=== PATIENT | male | born 1960 | race African-American/Black ===

== ENCOUNTER 2016-11-20 12:42 | Inpatient (IN) | payer OTHER ==
[2016-11-20 15:40] VITALS: BMI 26.9
--- NOTE | 2016-11-20 16:26 | HP ---
CIWA Score - CIWA Score Nausea/Vomitin-No Nausea/No Vomiting Muscle Tremors: 4-Moderate,w/Arms Extend Anxiety: 5 Agitation: 3 Paroxysmal Sweats: 1-Minimal Palms Moist Orientation: 0-Oriented Tacttile Disturbances: 3-Moderate Itch/Numb/Burn Auditory Disturbances: 0-None Visual Disturbances: 0-None Headache: 1-Very Mild CIWA-Ar Total Score: 17 Admission ROS BHS - HPI Chief Complaint: DETOX TX FOR ALCOHOL DEPENDENCE Allergies/Adverse Reactions: Allergies Allergy/AdvReac Type Severity Reaction Status Date / Time No Known Allergies Allergy Verified 11/20/16 17:30 History of Present Illness: 56 Y/O AA/MALE WITH A HX OF ALCOHOL, CRACK AND MARIJUANA DEPENDENCE SEEKING DETOX TX. Exam Limitations: No Limitations - Ebola screening Have you traveled outside of the country in the last 21 days: No Have you had contact with anyone from an Ebola affected area: No Have you been sick,other than usual withdrawal symptoms: No Do you have a fever: No - Review of Systems Constitutional: Changes in sleep, Unintentional Wgt. Loss EENT: reports: Blurred Vision (WEARS READING GLASSES), Tearing, Dental Problems (CHIPPED TOOTH) Respiratory: reports: Shortness of Breath (HX ASTHMA-MDI), Wheezing Cardiac: reports: Lightheadedness GI: reports: Diarrhea, Nausea, Vomiting, Abdominal cramping : reports: Frequency Musculoskeletal: reports: Back Pain, Muscle Pain Integumentary: reports: No Symptoms Reported Neuro: reports: Headache, Dizziness Endocrine: reports: No Symptoms Reported Hematology: reports: Anemia (IN THE PAST) Psychiatric: reports: Orientated x3, Anxious, Depressed Other Systems: Reviewed and Negative Patient History - Patient Medical History Hx Anemia: Yes (IN THE PAST) Hx Asthma: Yes (ALBUTEROL INHALER) Hx Chronic Obstructive Pulmonary Disease (COPD): No Hx Cardiac Disorders: No Hx Hypertension: Yes (ON HYDROCHLOROTHIAZIDE AND NORVASC) Hx Hypercholesterolemia: No HX Cerebrovascular Accident: No Hx Seizures: No Hx Diabetes: No Hx Gastrointestinal Disorders: No Hx Liver Disease: No Hx Genitourinary Disorders: No Hx Sexually Transmitted Disorders: No Hx Renal Disease (ESRD): No Hx Thyroid Disease: No Hx Human Immunodeficiency Virus (HIV): No (NEGATIVE HX) Hx Hepatitis C: Yes (TREATED) Hx Depression: Yes (CURENTLY ON MED) Hx Suicide Attempt: No (DENIES) Hx Bipolar Disorder: Yes Hx Schizophrenia: No - Patient Surgical History Past Surgical History: No Hx Neurologic Surgery: No Hx Cataract Extraction: No Hx Cardiac Surgery: No Hx Lung Surgery: No Hx Breast Surgery: No Hx Breast Biopsy: No Hx Abdominal Surgery: No Hx Appendectomy: No Hx Cholecystectomy: No Hx Genitourinary Surgery: No Hx Orthopedic Surgery: No Anesthesia Reaction: No - PPD History Previous Implant?: Yes (PPD+ HX WITH TREATMENT) Documented Results: Positive w/o proof Results: CXR TO BE DONE PPD to be Administered?: No - Reproductive History Patient is a Female of Child Bearing Age (11 -55 yrs old): No (MALE) - Smoking Cessation Smoking history: Current every day smoker Have you smoked in the past 12 months: Yes Aproximately how many cigarettes per day: 6 Hx Chewing Tobacco Use: No Initiated information on smoking cessation: Yes 'Breaking Loose' booklet given: 11/20/16 - Substance & Tx. History Hx Alcohol Use: Yes (BEER) Hx Substance Use: Yes (CRACK/MARIJUANA) Substance Use Type: Alcohol, Cocaine, Marijuana Hx Substance Use Treatment: Yes - Substances Abused Alcohol Route: Oral Frequency: Daily (BEERS) Amount used: 2 24 OZ CANS/1/2 PT(ON WEEKENDS) Age of first use: 13 Date of Last Use: 11/20/16 Crack Route: Smoking Frequency: 1-2 times per week Amount used: $100 Age of first use: 25 Date of Last Use: 11/17/16 Marijuana/Hashish Route: Smoking Frequency: 1-3 times last 30 days Amount used: 1 BLUNT Age of first use: 15 Date of Last Use: 10/23/16 Family Disease History - Family Disease History Family Disease History: Diabetes: Brother, Heart Disease: Mother () Admission Physical Exam BHS - Vital Signs Vital Signs: Vital Signs - 24 hr 11/20/16 15:38 Temperature 97.4 F L Pulse Rate 84 Respiratory 20 Rate Blood Pressure 143/85 - Physical General Appearance: Yes: Mild Distress, Moderate Distress, Anxious HEENTM: Yes: EOMI, Normocephalic, JOSE G, Pharynx Normal Respiratory: Yes: Chest Non-Tender, Lungs Clear, Normal Breath Sounds, No Respiratory Distress Neck: Yes: Supple, Trachea in good position Breast: Yes: Breast Exam Deferred Cardiology: Yes: Regular Rhythm, Regular Rate, S1, S2 Abdominal: Yes: Normal Bowel Sounds, Non Tender, Soft Genitourinary: Yes: Other (N/C) Back: Yes: Within Normal Limits Musculoskeletal: Yes: full range of Motion, Gait Steady Extremities: Yes: Normal Range of Motion, Non-Tender Neurological: Yes: study specialist II-XII NML intact, Fully Oriented, Alert, Motor Strength 5/5 Integumentary: Yes: Dry, Warm Lymphatic: Yes: Within Normal Limits - Diagnostic (1) Hypertension Current Visit: Yes Status: Chronic Qualifiers: Hypertension type: essential hypertension Qualified Code(s): I10 - Essential (primary) hypertension (2) Nicotine dependence Current Visit: Yes Status: Acute Qualifiers: Nicotine product type: cigarettes Substance use status: in withdrawal Qualified Code(s): F17.213 - Nicotine dependence, cigarettes, with withdrawal (3) Alcohol dependence with uncomplicated withdrawal Current Visit: Yes Status: Chronic (4) Cannabis dependence, uncomplicated Current Visit: No Status: Inactive (5) Cocaine dependence, uncomplicated Current Visit: Yes Status: Acute (6) History of asthma Current Visit: Yes Status: Chronic (7) Hx of hepatitis C Current Visit: Yes Status: Chronic (8) History of anemia Current Visit: Yes Status: Suspected (9) History of positive PPD Current Visit: Yes Status: Suspected Cleared for Admission [facility] - Detox or Rehab [facility] Level of Care: Medically Managed Detox Regimen/Protocol: Librium [facility] Breath Alcohol Content Breath Alcohol Content: 0 Urine Drug Screen - Results Drug Screen Negative: No Urine Drug Screen Results: KILEY-Cocaine
[2016-11-20] MEDS ORDERED: chlordiazePOXIDE HCL 25 MG CAPSULE PO PRN (16:40)
[2016-11-20] MEDS ORDERED: diphenhydrAMINE HCL 50 MG CAPSULE PO PRN (16:40)
[2016-11-20] MEDS ORDERED: MAGNESIUM CITRATE 300 ML BOTTLE PO PRN (16:40)
[2016-11-20] MEDS ORDERED: IBUPROFEN 400 MG TABLET (FP) PO PRN (16:40)
[2016-11-20] MEDS ORDERED: MAG HYDROX/AL HYDROX/SIMETH 30 ML UNIT-DOSE CUP PO PRN (16:40)
[2016-11-20] MEDS ORDERED: MAGNESIUM HYDROX 2400MG/30ML ORAL SUSPENSION 30 ML CUP PO PRN (16:40)
[2016-11-20] MEDS ORDERED: guaiFENesin/D-METHORPHAN HB 10 ML UNIT-DOSE CUPS PO PRN (16:40)
[2016-11-20] MEDS ORDERED: ACETAMINOPHEN 325 MG TABLET (FP) PO PRN (16:40)
[2016-11-20] MEDS ORDERED: NICOTINE POLACRILEX 2 MG GUM BC PRN (16:40)
[2016-11-20] MEDS ORDERED: MENTHOL/PHENOL 1 EACH UD MM PRN (16:40)
[2016-11-20] MEDS ORDERED: LOPERAMIDE HCL 2 MG CAPSULE PO PRN (16:40)
[2016-11-20] MEDS ORDERED: hydrOXYzine PAMOATE 25 MG CAPSULE (FP) PO PRN (16:40)
[2016-11-20] MEDS ORDERED: P-EPHED 60MG/TRIPROLIDI 2.5MG TABLET PO PRN (16:40)
[2016-11-20] MEDS ORDERED: chlordiazePOXIDE HCL 25 MG CAPSULE PO ONE (18:15)
[2016-11-20] MEDS: NICOTINE 14 MG/24 HOURS TOPICAL PATCH TD SCH (18:24)
[2016-11-20] MEDS: amLODIPine BESYLATE 10 MG TABLET (FP) PO SCH (18:24)
[2016-11-20 21:02] LABS: MCH 28.4 pg (25.7-33.7); MCHC 32.4 g/dl (32.0-35.9); MEAN CELL VOLUME 87.6 fl (80-96); MEAN PLT VOLUME 8.6 fl (7.5-11.1); PLATELET COUNT 214 K/MM3 (134-434); RDW 13.8 % (11.9-15.9); WHITE BLOOD COUNT 4.6 K/mm3 (4.0-10.0)
[2016-11-20 21:32] LABS: ALBUMIN 3.6 g/dl (3.4-5.0); ALK PHOS 107 U/L (45-117); ANION GAP 7 (8-16); BILIRUBIN,TOTAL 0.3 mg/dL (0.2-1.0); CALCIUM 9.2 mg/dL (8.5-10.1); CO2 29 mmol/L (21-32); CREATININE 1.2 mg/dL (0.7-1.3); GLUCOSE,RANDOM 85 mg/dL (74-106); SGOT/AST 35 U/L (15-37); SGPT/ALT 71 U/L (12-78)
[2016-11-20] MEDS: THIAMINE HCL 100 MG TABLET (FP) PO SCH (22:07)
[2016-11-20] MEDS: chlordiazePOXIDE HCL 25 MG CAPSULE PO SCH (22:07)
[2016-11-20 23:13] LABS: URINE APPEARANCE CLEAR; URINE BILIRUBIN NEGATIVE (NEGATIVE); URINE BLOOD NEGATIVE (NEGATIVE); URINE COLOR YELLOW; URINE GLUCOSE (UA) NEGATIVE (NEGATIVE); URINE KETONE NEGATIVE (NEGATIVE); URINE NITRITE NEGATIVE (NEGATIVE); URINE UROBILINOGEN 2.0 E.U/dl E.U./dl (0.2-1.0)
[2016-11-20 23:14] LABS: URINE LEUK ESTERASE TRACE (NEGATIVE); URINE PROTEIN 1+ (NEGATIVE)
[2016-11-21] MEDS: chlordiazePOXIDE HCL 25 MG CAPSULE PO SCH ×4 (06:02→22:09)
--- NOTE | 2016-11-21 10:01 | PN ---
[facility] CIWA - CIWA Score Nausea/Vomitin-No Nausea/No Vomiting Muscle Tremors: 4-Moderate,w/Arms Extend Anxiety: 4-Mod. Anxious/Guarded Agitation: 4-Moderately Restless Paroxysmal Sweats: 1-Minimal Palms Moist Orientation: 0-Oriented Tacttile Disturbances: 3-Moderate Itch/Numb/Burn Auditory Disturbances: 0-None Visual Disturbances: 0-None Headache: 0-None Present CIWA-Ar Total Score: 16 S Progress Note (SOAP) Subjective: ANXIETY,SWEATS,TREMORS,FATIGUE,INTERMITTENT SLEP. Objective: 11/21/16 10:00 Vital Signs Temperature 97.0 F L 11/21/16 09:35 Pulse Rate 78 11/21/16 09:35 Respiratory Rate 18 11/21/16 09:35 Blood Pressure 144/90 11/21/16 09:35 O2 Sat by Pulse Oximetry (%) Laboratory Last Values WBC 4.6 K/mm3 (4.0-10.0) 11/20/16 13:00 RBC 4.77 M/mm3 (4.00-5.60) 11/20/16 13:00 Hgb 13.5 GM/dL (11.7-16.9) 11/20/16 13:00 Hct 41.7 % (35.4-49) 11/20/16 13:00 MCV 87.6 fl (80-96) 11/20/16 13:00 MCHC 32.4 g/dl (32.0-35.9) 11/20/16 13:00 RDW 13.8 % (11.9-15.9) 11/20/16 13:00 Plt Count 214 K/MM3 (134-434) 11/20/16 13:00 MPV 8.6 fl (7.5-11.1) 11/20/16 13:00 Sodium 141 mmol/L (136-145) 11/20/16 13:00 Potassium 3.9 mmol/L (3.5-5.1) 11/20/16 13:00 Chloride 105 mmol/L (98-107) 11/20/16 13:00 Carbon Dioxide 29 mmol/L (21-32) 11/20/16 13:00 Anion Gap 7 (8-16) L 11/20/16 13:00 BUN 22 mg/dL (7-18) H D 11/20/16 13:00 Creatinine 1.2 mg/dL (0.7-1.3) 11/20/16 13:00 Creat Clearance w eGFR > 60 (>60) 11/20/16 13:00 Random Glucose 85 mg/dL (74-106) 11/20/16 13:00 Calcium 9.2 mg/dL (8.5-10.1) 11/20/16 13:00 Total Bilirubin 0.3 mg/dL (0.2-1.0) D 11/20/16 13:00 AST 35 U/L (15-37) 11/20/16 13:00 ALT 71 U/L (12-78) D 11/20/16 13:00 Alkaline Phosphatase 107 U/L (45-117) D 11/20/16 13:00 Total Protein 7.0 g/dl (6.4-8.2) 11/20/16 13:00 Albumin 3.6 g/dl (3.4-5.0) 11/20/16 13:00 Urine Color Yellow 11/20/16 23:00 Urine Appearance Clear 11/20/16 23:00 Urine pH 5.0 (5.0-8.0) 11/20/16 23:00 Ur Specific [place] 1.030 (1.001-1.035) 11/20/16 23:00 Urine Protein 1+ (NEGATIVE) H 11/20/16 23:00 Urine Glucose (UA) Negative (NEGATIVE) 11/20/16 23:00 Urine Ketones Negative (NEGATIVE) 11/20/16 23:00 Urine Blood Negative (NEGATIVE) 11/20/16 23:00 Urine Nitrite Negative (NEGATIVE) 11/20/16 23:00 Urine Bilirubin Negative (NEGATIVE) 11/20/16 23:00 Urine Urobilinogen 2.0 e.u/dl E.U./dl (0.2-1.0) 11/20/16 23:00 Ur Leukocyte Esterase Trace (NEGATIVE) H 11/20/16 23:00 Assessment: 11/21/16 10:01 WITHDRAWAL SX Plan: CONTINUE DETOX
[2016-11-21] MEDS: ASPIRIN 81 MG CHEWABLE TABLETS PO SCH (10:09)
[2016-11-21] MEDS: TRIAMTERENE AND HCTZ - 37.5 MG/25 MG CAPSULE PO SCH (10:09)
[2016-11-21] MEDS: NICOTINE 14 MG/24 HOURS TOPICAL PATCH TD SCH (10:09)
[2016-11-21] MEDS: amLODIPine BESYLATE 10 MG TABLET (FP) PO SCH (10:09)
[2016-11-21] MEDS: PRENATAL VITAMINS W/ FOLIC ACID TABLET (FP) PO SCH (10:09)
--- NOTE | 2016-11-21 20:36 | CONSULT ---
[facility] Psychiatric Consult - Data Date of interview: 11/21/16 Admission source: [facility] Identifying data: Readmission to [facility] for this 56 y/o AA male seeking detox treatment on for alcohol,cocaine and marijuana dependence.Patient is single,a father of two,domiciled,unemployed and supported on Public Assistance. Substance Abuse History: - Smoking Cessation. Smoking history: Current every day smoker. Have you smoked in the past 12 months: Yes. Aproximately how many cigarettes per day: 6. Hx Chewing Tobacco Use: No. Initiated information on smoking cessation: Yes. 'Breaking Loose' booklet given: 11/20/16. - Substance & Tx. History. Hx Alcohol Use: Yes (BEER). Hx Substance Use: Yes (CRACK/ MARIJUANA). Substance Use Type: Alcohol, Cocaine, Marijuana. Hx Substance Use Treatment: Yes. - Substances Abused. Alcohol. Route: Oral. Frequency: Daily (BEERS). Amount used: 2 24 OZ CANS/1/2 PT(ON WEEKENDS). Age of first use: 13. Date of Last Use: 11/20/16. Crack. Route: Smoking. Frequency: 1- 2 times per week. Amount used: $100. Age of first use: 25. Date of Last Use: 11/17/16. Marijuana/Hashish. Route: Smoking. Frequency: 1-3 times last 30 days. Amount used: 1 BLUNT. Age of first use: 15. Date of Last Use: 10/23/16 Medical History: Anemia,bronchial asthma,hypertension,hepatitis C and a history of (+) PPD treated. Psychiatric History: First contact with psychiatry () during incarceration.Diagnosed with MDD.Diagnosis was revised to Bipolar Disorder/PTSD in 2017. Prescribed seroquel 50 mg po bid and prozac 10 mg/day.Mr Khan states that he is seeing a private psychiatrist.No reported history of psychiatric hospitalizations.Patient denies suicide attempts. Physical/Sexual Abuse/Trauma History: Patient declines to discuss the reasons leading to his diagnosis of PTSD. Additional Comment: Urine Drug Screen Results: KILEY-Cocaine.Noted. Mental Status Exam - Mental Status Exam Alert and Oriented to: Time, Place, Person Cognitive Function: Good Patient Appearance: Well Groomed Mood: Nervous, Withdrawn, Anxious Affect: Mood Congruent Patient Behavior: Fatigued, Appropriate, Cooperative Speech Pattern: Clear, Appropriate Voice Loudness: Normal Thought Process: Goal Oriented Thought Disorder: Not Present Hallucinations: Denies Suicidal Ideation: Denies Homicidal Ideation: Denies Insight/Judgement: Poor Sleep: Poorly, Difficulty falling asleep Appetite: Good Muscle strength/Tone: Normal Gait/Station: Normal Psychiatric Findings - Problem List ([place] 1, 2,3) (1) Alcohol dependence with uncomplicated withdrawal Current Visit: Yes Status: Acute (2) Cocaine dependence, uncomplicated Current Visit: Yes Status: Acute (3) Nicotine dependence Current Visit: Yes Status: Acute Qualifiers: Nicotine product type: cigarettes Substance use status: in withdrawal Qualified Code(s): F17.213 - Nicotine dependence, cigarettes, with withdrawal (4) Cannabis dependence Current Visit: Yes Status: Acute (5) Substance induced mood disorder Current Visit: Yes Status: Acute (6) Depressive disorder Current Visit: Yes Status: Chronic Comment: History. (7) History of asthma Current Visit: Yes Status: Chronic (8) Hx of hepatitis C Current Visit: Yes Status: Chronic (9) Hypertension Current Visit: Yes Status: Chronic Qualifiers: Hypertension type: essential hypertension Qualified Code(s): I10 - Essential (primary) hypertension (10) History of anemia Current Visit: Yes Status: Suspected (11) History of positive PPD Current Visit: Yes Status: Suspected - Initial Treatment Plan Initial Treatment Plan: Psychoeducation.Detoxification.Medications : prozac 10 mg po daily + seroquel 50 mg po bid.Side effects/benefits discussed with the patient.Observation.
[2016-11-21] MEDS: QUEtiapine FUMARATE 50 MG TABLET PO SCH (22:09)
[2016-11-21] MEDS: THIAMINE HCL 100 MG TABLET (FP) PO SCH (22:09)
[2016-11-22] MEDS: chlordiazePOXIDE HCL 25 MG CAPSULE PO SCH ×3 (05:56→18:18)
[2016-11-22] MEDS: amLODIPine BESYLATE 10 MG TABLET (FP) PO SCH (10:11)
[2016-11-22] MEDS: ASPIRIN 81 MG CHEWABLE TABLETS PO SCH (10:11)
[2016-11-22] MEDS: FLUoxetine HCL 10 MG CAPSULE (FP) PO SCH (10:11)
[2016-11-22] MEDS: TRIAMTERENE AND HCTZ - 37.5 MG/25 MG CAPSULE PO SCH (10:11)
[2016-11-22] MEDS: NICOTINE 14 MG/24 HOURS TOPICAL PATCH TD SCH (10:12)
[2016-11-22] MEDS: QUEtiapine FUMARATE 50 MG TABLET PO SCH ×2 (10:12→22:07)
[2016-11-22] MEDS: PRENATAL VITAMINS W/ FOLIC ACID TABLET (FP) PO SCH (10:12)
--- NOTE | 2016-11-22 10:36 | PN ---
[facility] CIWA - CIWA Score Nausea/Vomitin-No Nausea/No Vomiting Muscle Tremors: 4-Moderate,w/Arms Extend Anxiety: 4-Mod. Anxious/Guarded Agitation: 3 Paroxysmal Sweats: 1-Minimal Palms Moist Orientation: 0-Oriented Tacttile Disturbances: 3-Moderate Itch/Numb/Burn Auditory Disturbances: 0-None Visual Disturbances: 0-None Headache: 0-None Present CIWA-Ar Total Score: 15 S Progress Note (SOAP) Subjective: ANXIETY,TREMORS,SWEATS, FATIGUE. Objective: 11/22/16 10:35 Vital Signs Temperature 98.7 F 11/22/16 09:34 Pulse Rate 80 11/22/16 09:34 Respiratory Rate 20 11/22/16 09:34 Blood Pressure 134/90 11/22/16 09:34 O2 Sat by Pulse Oximetry (%) Laboratory Last Values WBC 4.6 K/mm3 (4.0-10.0) 11/20/16 13:00 RBC 4.77 M/mm3 (4.00-5.60) 11/20/16 13:00 Hgb 13.5 GM/dL (11.7-16.9) 11/20/16 13:00 Hct 41.7 % (35.4-49) 11/20/16 13:00 MCV 87.6 fl (80-96) 11/20/16 13:00 MCHC 32.4 g/dl (32.0-35.9) 11/20/16 13:00 RDW 13.8 % (11.9-15.9) 11/20/16 13:00 Plt Count 214 K/MM3 (134-434) 11/20/16 13:00 MPV 8.6 fl (7.5-11.1) 11/20/16 13:00 Sodium 141 mmol/L (136-145) 11/20/16 13:00 Potassium 3.9 mmol/L (3.5-5.1) 11/20/16 13:00 Chloride 105 mmol/L (98-107) 11/20/16 13:00 Carbon Dioxide 29 mmol/L (21-32) 11/20/16 13:00 Anion Gap 7 (8-16) L 11/20/16 13:00 BUN 22 mg/dL (7-18) H D 11/20/16 13:00 Creatinine 1.2 mg/dL (0.7-1.3) 11/20/16 13:00 Creat Clearance w eGFR > 60 (>60) 11/20/16 13:00 Random Glucose 85 mg/dL (74-106) 11/20/16 13:00 Calcium 9.2 mg/dL (8.5-10.1) 11/20/16 13:00 Total Bilirubin 0.3 mg/dL (0.2-1.0) D 11/20/16 13:00 AST 35 U/L (15-37) 11/20/16 13:00 ALT 71 U/L (12-78) D 11/20/16 13:00 Alkaline Phosphatase 107 U/L (45-117) D 11/20/16 13:00 Total Protein 7.0 g/dl (6.4-8.2) 11/20/16 13:00 Albumin 3.6 g/dl (3.4-5.0) 11/20/16 13:00 Urine Color Yellow 11/20/16 23:00 Urine Appearance Clear 11/20/16 23:00 Urine pH 5.0 (5.0-8.0) 11/20/16 23:00 Ur Specific [place] 1.030 (1.001-1.035) 11/20/16 23:00 Urine Protein 1+ (NEGATIVE) H 11/20/16 23:00 Urine Glucose (UA) Negative (NEGATIVE) 11/20/16 23:00 Urine Ketones Negative (NEGATIVE) 11/20/16 23:00 Urine Blood Negative (NEGATIVE) 11/20/16 23:00 Urine Nitrite Negative (NEGATIVE) 11/20/16 23:00 Urine Bilirubin Negative (NEGATIVE) 11/20/16 23:00 Urine Urobilinogen 2.0 e.u/dl E.U./dl (0.2-1.0) 11/20/16 23:00 Ur Leukocyte Esterase Trace (NEGATIVE) H 11/20/16 23:00 RPR Titer Nonreactive (NONREACTIVE) 11/20/16 13:00 Assessment: 11/22/16 10:35 WITHDRAWAL SX Plan: CONTINUE DETOX. REPEAT UA TODAY.
--- NOTE | 2016-11-22 11:15 | EKG ---
Test Reason : Blood Pressure : / mmHG Vent. Rate : 054 BPM Atrial Rate : 054 BPM P-R Int : 172 ms QRS Dur : 092 ms QT Int : 482 ms P-R-T Axes : 068 -04 -62 degrees QTc Int : 457 ms SINUS BRADYCARDIA WITH MARKED SINUS ARRHYTHMIA POSSIBLE LEFT ATRIAL ENLARGEMENT POSSIBLE ANTEROSEPTAL INFARCT , AGE UNDETERMINED ABNORMAL ECG NO PREVIOUS ECGS AVAILABLE Confirmed by NATALIE SNOWDEN, ARLENE ([id number]) on 11/22/2016 11:15:48 AM Referred By: Confirmed By:ARLENE ESTRADA MD
--- NOTE | 2016-11-22 20:58 | PN ---
S Progress Note Note: RECEIVED NURSE CALL PATIENT REFUSES LIBRIUM 25 MG X 1 LESS WITHDRAWAL SX CONTINUE DETOX
[2016-11-22] MEDS: THIAMINE HCL 100 MG TABLET (FP) PO SCH (22:07)
[2016-11-22] MEDS: chlordiazePOXIDE 5 MG CAPSULE PO SCH (22:59)
[2016-11-23] MEDS: chlordiazePOXIDE 5 MG CAPSULE PO SCH ×3 (05:48→17:24)
[2016-11-23] MEDS: PRENATAL VITAMINS W/ FOLIC ACID TABLET (FP) PO SCH (10:08)
[2016-11-23] MEDS: ASPIRIN 81 MG CHEWABLE TABLETS PO SCH (10:08)
[2016-11-23] MEDS: QUEtiapine FUMARATE 50 MG TABLET PO SCH ×2 (10:08→22:06)
[2016-11-23] MEDS: amLODIPine BESYLATE 10 MG TABLET (FP) PO SCH (10:08)
[2016-11-23] MEDS: FLUoxetine HCL 10 MG CAPSULE (FP) PO SCH (10:08)
[2016-11-23] MEDS: NICOTINE 14 MG/24 HOURS TOPICAL PATCH TD SCH (10:09)
[2016-11-23] MEDS: TRIAMTERENE AND HCTZ - 37.5 MG/25 MG CAPSULE PO SCH (10:10)
--- NOTE | 2016-11-23 12:09 | PN ---
[facility] Progress Note (SOAP) Subjective: DECREASED ANXIETY AND TREMORS. LESS FATIGUE, OOB IN NAD. Objective: 11/23/16 12:08 Vital Signs 11/23/16 11/23/16 06:49 09:56 Temperature 97.5 F L 97.1 F L Pulse Rate 75 75 Respiratory 18 20 Rate Blood Pressure 134/88 150/94 Assessment: 11/23/16 12:08 WITHDRAWAL SX Plan: CONTINUE DETOX
[2016-11-23 20:23] LABS: URINE APPEARANCE CLEAR; URINE BILIRUBIN NEGATIVE (NEGATIVE); URINE BLOOD NEGATIVE (NEGATIVE); URINE COLOR YELLOW; URINE GLUCOSE (UA) NEGATIVE (NEGATIVE); URINE KETONE NEGATIVE (NEGATIVE); URINE LEUK ESTERASE NEGATIVE (NEGATIVE); URINE NITRITE NEGATIVE (NEGATIVE); URINE PROTEIN NEGATIVE (NEGATIVE); URINE UROBILINOGEN NEGATIVE E.U./dl (0.2-1.0)
[2016-11-23] MEDS: THIAMINE HCL 100 MG TABLET (FP) PO SCH (22:06)
[2016-11-23] MEDS: chlordiazePOXIDE HCL 10 MG CAPSULE PO SCH (22:06)
[2016-11-24] MEDS: chlordiazePOXIDE HCL 10 MG CAPSULE PO SCH ×2 (05:17→10:58)
[2016-11-24] MEDS ORDERED: ALBUTEROL SO4 6.7 GM HFA INHALER IH SCH (09:00)
[2016-11-24] MEDS: ASPIRIN 81 MG CHEWABLE TABLETS PO SCH (09:47)
[2016-11-24] MEDS: PRENATAL VITAMINS W/ FOLIC ACID TABLET (FP) PO SCH (09:47)
[2016-11-24] MEDS: amLODIPine BESYLATE 10 MG TABLET (FP) PO SCH (09:47)
[2016-11-24] MEDS: FLUoxetine HCL 10 MG CAPSULE (FP) PO SCH (09:47)
[2016-11-24] MEDS: TRIAMTERENE AND HCTZ - 37.5 MG/25 MG CAPSULE PO SCH (09:48)
[2016-11-24] MEDS: NICOTINE 14 MG/24 HOURS TOPICAL PATCH TD SCH (09:48)
[2016-11-24] MEDS: QUEtiapine FUMARATE 50 MG TABLET PO SCH (09:48)
[2016-11-24 10:36] VITALS: BP 143/88; PULSE 105; TEMP 97.8
--- NOTE | 2016-11-24 10:49 | DS ---
[facility] Detox Discharge Summary Admission Date: 11/20/16 Discharge Date: 11/24/16 - History Present History: Alcohol Dependence, Cocaine Dependence Additional Comments: DETOX COMPLETED. ALERT O X 3. NAD. PT INSTRUCTED TO F/U WITH PMD AT [facility] COMORBID CONDITIONS. Pertinent Past History: HTN HX CARDIAC ARRHYTHMIA HEP C ASTHMA MOOD DISORDER - Physical Exam Results Vital Signs: Vital Signs Temperature 97.8 F 11/24/16 10:35 Pulse Rate 105 H 11/24/16 10:35 Respiratory Rate 20 11/24/16 10:35 Blood Pressure 143/88 11/24/16 10:35 O2 Sat by Pulse Oximetry (%) Pertinent Admission Physical Exam Findings: WITHDRAWAL SX Laboratory Last Values WBC 4.6 K/mm3 (4.0-10.0) 11/20/16 13:00 RBC 4.77 M/mm3 (4.00-5.60) 11/20/16 13:00 Hgb 13.5 GM/dL (11.7-16.9) 11/20/16 13:00 Hct 41.7 % (35.4-49) 11/20/16 13:00 MCV 87.6 fl (80-96) 11/20/16 13:00 MCHC 32.4 g/dl (32.0-35.9) 11/20/16 13:00 RDW 13.8 % (11.9-15.9) 11/20/16 13:00 Plt Count 214 K/MM3 (134-434) 11/20/16 13:00 MPV 8.6 fl (7.5-11.1) 11/20/16 13:00 Sodium 141 mmol/L (136-145) 11/20/16 13:00 Potassium 3.9 mmol/L (3.5-5.1) 11/20/16 13:00 Chloride 105 mmol/L (98-107) 11/20/16 13:00 Carbon Dioxide 29 mmol/L (21-32) 11/20/16 13:00 Anion Gap 7 (8-16) L 11/20/16 13:00 BUN 22 mg/dL (7-18) H D 11/20/16 13:00 Creatinine 1.2 mg/dL (0.7-1.3) 11/20/16 13:00 Creat Clearance w eGFR > 60 (>60) 11/20/16 13:00 Random Glucose 85 mg/dL (74-106) 11/20/16 13:00 Calcium 9.2 mg/dL (8.5-10.1) 11/20/16 13:00 Total Bilirubin 0.3 mg/dL (0.2-1.0) D 11/20/16 13:00 AST 35 U/L (15-37) 11/20/16 13:00 ALT 71 U/L (12-78) D 11/20/16 13:00 Alkaline Phosphatase 107 U/L (45-117) D 11/20/16 13:00 Total Protein 7.0 g/dl (6.4-8.2) 11/20/16 13:00 Albumin 3.6 g/dl (3.4-5.0) 11/20/16 13:00 Urine Color Yellow 11/23/16 20:01 Urine Appearance Clear 11/23/16 20:01 Urine pH 6.0 (5.0-8.0) 11/23/16 20:01 Ur Specific [place] 1.025 (1.001-1.035) 11/23/16 20:01 Urine Protein Negative (NEGATIVE) 11/23/16 20:01 Urine Glucose (UA) Negative (NEGATIVE) 11/23/16 20:01 Urine Ketones Negative (NEGATIVE) 11/23/16 20:01 Urine Blood Negative (NEGATIVE) 11/23/16 20:01 Urine Nitrite Negative (NEGATIVE) 11/23/16 20:01 Urine Bilirubin Negative (NEGATIVE) 11/23/16 20:01 Urine Urobilinogen Negative E.U./dl (0.2-1.0) 11/23/16 20:01 Ur Leukocyte Esterase Negative (NEGATIVE) 11/23/16 20:01 RPR Titer Nonreactive (NONREACTIVE) 11/20/16 13:00 - Treatment Hospital Course: Detox Protocol Followed, Detoxed Safely, Responded well, Discharged Condition Good, Rehab Referral Accepted Patient has Accepted a Rehab Referral to: [facility] - Medication Discharge Medications: Ambulatory Orders Amlodipine Besylate [Norvasc -] 10 mg PO DAILY #30 tablet 06/16/16 Hctz 25Mg/Triamterene [Dyazide 25/37.5 -] 1 cap PO DAILY #30 capsule 06/16/16 Quetiapine Fumarate [Seroquel] 100 tab PO HS #30 tablet 06/16/16 Albuterol Sulfate Inhaler - [Ventolin Hfa Inhaler -] 2 inh PO Q6H 11/20/16 Fluoxetine HCl [Prozac -] 10 mg PO DAILY #30 capsule 11/22/16 Quetiapine Fumarate [Seroquel -] 50 mg PO BID #30 tablet 11/22/16 - Diagnosis (1) Hypertension Current Visit: Yes Status: Chronic Qualifiers: Hypertension type: essential hypertension Qualified Code(s): I10 - Essential (primary) hypertension (2) Nicotine dependence Current Visit: Yes Status: Acute Qualifiers: Nicotine product type: cigarettes Substance use status: in withdrawal Qualified Code(s): F17.213 - Nicotine dependence, cigarettes, with withdrawal (3) Alcohol dependence with uncomplicated withdrawal Current Visit: Yes Status: Acute (4) Cannabis dependence, uncomplicated Current Visit: No Status: Inactive (5) Cocaine dependence, uncomplicated Current Visit: Yes Status: Acute (6) History of asthma Current Visit: Yes Status: Chronic (7) Hx of hepatitis C Current Visit: Yes Status: Chronic (8) History of anemia Current Visit: Yes Status: Suspected (9) History of positive PPD Current Visit: Yes Status: Suspected (10) Cardiac arrhythmia Current Visit: Yes Status: Suspected Qualifiers: Atrial fibrillation type: unspecified - AMA Did Patient Leave Against Medical Advice: No
== END 2016-11-24 09:50 | disposition home or self-care (01) | DRG 774 ==
LOC: YASAS 12:42 → Y3N 17:57
PROVIDERS: ADMIT Internal Medicine Addiction Medicine; ATTEND Internal Medicine
PROC: HZ2ZZZZ Detoxification Services for Substance Abuse Treatment (ICD-10-PCS; principal; 2016-11-24)
DX: F10.230 Alcohol dependence with withdrawal, uncomplicated (principal); F17.210 Nicotine dependence, cigarettes, uncomplicated; F14.20 Cocaine dependence, uncomplicated; F12.20 Cannabis dependence, uncomplicated; F19.24 Other psychoactive substance dependence with psychoactive substance-induced mood disorder; F33.9 Major depressive disorder, recurrent, unspecified; I10 Essential (primary) hypertension; J45.20 Mild intermittent asthma, uncomplicated; B18.2 Chronic viral hepatitis C; D64.9 Anemia, unspecified; R76.11 Nonspecific reaction to tuberculin skin test without active tuberculosis
CPT/HCPCS: 36415; 71020-TC; 80053; 81003; 81015; 85027; 86593; 93005; 93010

== ENCOUNTER 2023-10-26 12:07 | Inpatient (IN) | payer OTHER ==
[2023-10-26 13:15] VITALS: BMI 25.1
[2023-10-26] MEDS ORDERED: MAGNESIUM HYDROX 2400MG/30ML ORAL SUSPENSION 30 ML CUP PO PRN (14:05)
[2023-10-26] MEDS ORDERED: BENZOCAINE/MENTHOL (CHLORASEPTIC ) LOZENGE MM PRN (14:05)
[2023-10-26] MEDS ORDERED: ONDANSETRON *ODT* 4 MG TABLET SL PRN (14:05)
[2023-10-26] MEDS ORDERED: MAG HYDROX/AL HYDROX/SIMETH 30 ML UNIT-DOSE CUP PO PRN (14:05)
[2023-10-26] MEDS ORDERED: LOPERAMIDE HCL 2 MG CAPSULE PO PRN (14:05)
[2023-10-26] MEDS ORDERED: ACETAMINOPHEN 325 MG TABLET (FP) PO PRN (14:05)
[2023-10-26] MEDS ORDERED: IBUPROFEN 400 MG TABLET (FP) PO PRN (14:05)
[2023-10-26] MEDS ORDERED: DICYCLOMINE HCL 10 MG CAPSULE PO PRN (14:05)
[2023-10-26] MEDS ORDERED: NALOXONE HCL 0.4 MG/ML VIAL IM PRN (14:05)
[2023-10-26] MEDS ORDERED: BISMUTH SUBSALICYLATE 524 MG/30 ML PO PRN (14:05)
[2023-10-26] MEDS ORDERED: BENZONATATE 200 MG CAPSULE PO PRN (14:05)
[2023-10-26] MEDS ORDERED: POLYETHYLENE GLYCOL (HEALTHYLAX) 3350 17 GM PACKET PO PRN (14:05)
[2023-10-26] MEDS ORDERED: NALOXONE HCL (KLOXXADO) 8 MG SPRAY NS PRN (14:05)
[2023-10-26] MEDS ORDERED: guaiFENesin 600 MG TABLET.ER (FP) PO PRN (14:05)
[2023-10-26] MEDS ORDERED: PRENATAL VITAMINS W/ FOLIC ACID TABLET (FP) PO ONE (15:55)
[2023-10-26] MEDS: PRENATAL VITAMINS W/ FOLIC ACID TABLET (FP) PO SCH (15:58)
[2023-10-26] MEDS: diazePAM 5 MG TABLET PO SCH (17:37)
[2023-10-26] MEDS: ALBUTEROL SO4 HFA INHALER IH SCH (18:46)
[2023-10-26] MEDS: MELATONIN 5 MG TABLETS PO SCH (22:04)
[2023-10-26] MEDS: THIAMINE HCL 100 MG TABLET (FP) PO SCH (22:05)
[2023-10-27] MEDS: amLODIPine BESYLATE 10 MG TABLET (FP) PO SCH (10:31)
[2023-10-27] MEDS: TRIAMTERENE AND HCTZ - 37.5 MG/25 MG CAPSULE PO SCH (10:31)
[2023-10-27] MEDS: NICOTINE 7 MG/24 HOURS TOPICAL PATCH TD SCH (10:32)
[2023-10-27 11:55] LABS: ALBUMIN 3.9 g/dl (3.4-5.0); BLOOD UREA NITROGEN 33.6 mg/dL (7-18); CALCIUM 9.1 mg/dL (8.5-10.1)
[2023-10-27 11:59] LABS: CREATININE 1.3 mg/dL (0.55-1.3)
[2023-10-27 12:00] LABS: BILIRUBIN,TOTAL 1.1 mg/dL (0.2-1); TOT PROT 7.4 g/dl (6.4-8.2)
[2023-10-27 12:06] LABS: HEMOGLOBIN 13.6 GM/dL (11.7-16.9); MCH 29.4 pg (25.7-33.7); MCHC 33.9 g/dl (32.0-35.9); MEAN CELL VOLUME 86.6 fl (80-96); PLATELET COUNT 156 10^3/uL (134-434); RBC 4.62 M/mm3 (4.00-5.60); RDW 15.4 % (11.9-15.9); WHITE BLOOD COUNT 5.9 K/mm3 (4.0-10.0)
[2023-10-27] MEDS: IBUPROFEN 600 MG TABLET (FP) PO PRN (17:53)
[2023-10-27] MEDS: METHOCARBAMOL 500 MG TABLET PO PRN (17:53)
[2023-10-27] MEDS: QUEtiapine FUMARATE 50 MG TABLET PO PRN (22:29)
[2023-10-28] MEDS: diazePAM 5 MG TABLET PO SCH (05:43)
[2023-10-28] MEDS: hydrOXYzine PAMOATE 25 MG CAPSULE (FP) PO PRN (06:55)
[2023-10-28] MEDS: diazePAM 5 MG TABLET PO PRN (17:28)
[2023-10-29] MEDS: diazePAM 5 MG TABLET PO SCH (05:49)
[2023-10-29] MEDS: ALBUTEROL SO4 HFA INHALER IH PRN (20:22)
[2023-10-30] MEDS: diazePAM 5 MG TABLET PO ONE (05:26)
[2023-10-30 09:55] VITALS: BP 131/75; PULSE 77; RESP 18; TEMP 98
== END 2023-10-30 10:02 | disposition home or self-care (01) | DRG 774 ==
LOC: YASAS 12:07 → Y6N 14:55
PROVIDERS: ADMIT Allergy & Immunology; ATTEND Surgery
PROC: HZ2ZZZZ Detoxification Services for Substance Abuse Treatment (ICD-10-PCS; principal; 2023-10-26)
DX: F10.230 Alcohol dependence with withdrawal, uncomplicated (principal); F14.20 Cocaine dependence, uncomplicated; F12.20 Cannabis dependence, uncomplicated; F17.210 Nicotine dependence, cigarettes, uncomplicated; F10.282 Alcohol dependence with alcohol-induced sleep disorder; F19.24 Other psychoactive substance dependence with psychoactive substance-induced mood disorder; I10 Essential (primary) hypertension; Z86.11 Personal history of tuberculosis; Z86.19 Personal history of other infectious and parasitic diseases; Z87.09 Personal history of other diseases of the respiratory system
CPT/HCPCS: 36415; 80053; 80305; 80307; 82962; 83036; 84520; 85027; 86780; 87635; 93005; 93010

== ENCOUNTER 2023-11-29 16:31 | Inpatient (IN) | payer OTHER ==
[2023-11-29 18:22] VITALS: BMI 26.5
[2023-11-29] MEDS ORDERED: BENZONATATE 200 MG CAPSULE PO PRN (19:07)
[2023-11-29] MEDS ORDERED: LOPERAMIDE HCL 2 MG CAPSULE PO PRN (19:07)
[2023-11-29] MEDS ORDERED: POLYETHYLENE GLYCOL (HEALTHYLAX) 3350 17 GM PACKET PO PRN (19:07)
[2023-11-29] MEDS ORDERED: BISMUTH SUBSALICYLATE 524 MG/30 ML PO PRN (19:07)
[2023-11-29] MEDS ORDERED: ACETAMINOPHEN 325 MG TABLET (FP) PO PRN (19:07)
[2023-11-29] MEDS ORDERED: NICOTINE POLACRILEX 2 MG GUM BUC PRN (19:07)
[2023-11-29] MEDS ORDERED: MAGNESIUM HYDROX 2400MG/30ML ORAL SUSPENSION 30 ML CUP PO PRN (19:07)
[2023-11-29] MEDS ORDERED: guaiFENesin 600 MG TABLET.ER (FP) PO PRN (19:07)
[2023-11-29] MEDS ORDERED: ONDANSETRON *ODT* 4 MG TABLET SL PRN (19:07)
[2023-11-29] MEDS ORDERED: BENZOCAINE/MENTHOL (CHLORASEPTIC ) LOZENGE MM PRN (19:07)
[2023-11-29] MEDS ORDERED: MAG HYDROX/AL HYDROX/SIMETH 30 ML UNIT-DOSE CUP PO PRN (19:07)
[2023-11-29] MEDS ORDERED: ALBUTEROL SO4 HFA INHALER IH PRN (19:30)
[2023-11-29] MEDS ORDERED: ASPIRIN 81 MG CHEWABLE TABLETS ONE (19:48)
[2023-11-29] MEDS ORDERED: IBUPROFEN 600 MG TABLET (FP) PO ONE (19:48)
[2023-11-29] MEDS ORDERED: amLODIPine BESYLATE 5 MG TABLET (FP) ONE (19:48)
[2023-11-29] MEDS: amLODIPine BESYLATE 5 MG TABLET (FP) PO ONE (19:48)
[2023-11-29] MEDS: IBUPROFEN 600 MG TABLET (FP) PO PRN (19:49)
[2023-11-29] MEDS: ASPIRIN 81 MG CHEWABLE TABLETS PO SCH (19:49)
[2023-11-29] MEDS: amLODIPine BESYLATE 10 MG TABLET (FP) PO SCH (19:52)
[2023-11-29] MEDS ORDERED: QUEtiapine FUMARATE 100 MG TABLET (FP) PO SCH (22:00)
[2023-11-29] MEDS: ATORVASTATIN CA 40 MG TABLET (FP) PO SCH (22:21)
[2023-11-29] MEDS: levETIRAcetam 500 MG TABLET (FP) PO SCH (22:21)
[2023-11-29] MEDS: GABAPENTIN 400 MG CAPSULE PO SCH (22:21)
[2023-11-29] MEDS: THIAMINE HCL 100 MG TABLET (FP) PO SCH (22:21)
[2023-11-29] MEDS: DIVALPROEX SODIUM 500 MG TABLET E.C. PO SCH (22:22)
[2023-11-29] MEDS: QUEtiapine FUMARATE 100 MG TABLET (FP) PO SCH (22:22)
[2023-11-29] MEDS: MELATONIN 5 MG TABLETS PO SCH (22:22)
[2023-11-30] MEDS: QUEtiapine FUMARATE 50 MG TABLET PO SCH (06:24)
[2023-11-30] MEDS ORDERED: chlordiazePOXIDE HCL 25 MG CAPSULE PO PRN (09:34)
[2023-11-30] MEDS ORDERED: SERTRALINE HCL 50 MG TABLET (FP) PO SCH (10:00)
[2023-11-30] MEDS ORDERED: PATIENT'S OWN MEDICATION (NON-FORMULARY) (Sertraline Hcl [Zoloft] 100 MG Tablet) PO SCH (10:00)
[2023-11-30] MEDS: SERTRALINE HCL 50 MG TABLET (FP) PO SCH (10:06)
[2023-11-30] MEDS: amLODIPine BESYLATE 10 MG TABLET (FP) PO SCH (10:07)
[2023-11-30] MEDS: PRENATAL VITAMINS W/ FOLIC ACID TABLET (FP) PO SCH (10:07)
[2023-11-30] MEDS: chlordiazePOXIDE HCL 25 MG CAPSULE PO SCH (10:08)
[2023-11-30 11:55] LABS: HEMATOCRIT 39.1 % (35.4-49); HEMOGLOBIN 12.9 GM/dL (11.7-16.9); MCH 28.5 pg (25.7-33.7); MCHC 33.1 g/dl (32.0-35.9); MEAN CELL VOLUME 86.1 fl (80-96); MEAN PLT VOLUME 8.7 fl (7.5-11.1); PLATELET COUNT 166 10^3/uL (134-434); RBC 4.54 M/mm3 (4.00-5.60); WHITE BLOOD COUNT 5.8 K/mm3 (4.0-10.0)
[2023-11-30] MEDS: TRIAMTERENE AND HCTZ - 37.5 MG/25 MG CAPSULE PO SCH (12:08)
[2023-11-30 12:10] LABS: POTASSIUM 3.2 mmol/L (3.5-5.1)
[2023-11-30 12:19] LABS: CALCIUM 8.6 mg/dL (8.5-10.1)
[2023-11-30 12:20] LABS: ALBUMIN 3.4 g/dl (3.4-5.0); BLOOD UREA NITROGEN 29.6 mg/dL (7-18)
[2023-11-30 12:23] LABS: BILIRUBIN,TOTAL 0.9 mg/dL (0.2-1); CREATININE 0.9 mg/dL (0.55-1.3); TOT PROT 6.6 g/dl (6.4-8.2)
[2023-12-01] MEDS: QUEtiapine FUMARATE 25 MG TABLET PO SCH (10:03)
[2023-12-01] MEDS: POTASSIUM CHLORIDE ORAL LIQUID 20 MEQ/15 ML PO ONE (18:55)
[2023-12-01] MEDS: predniSONE 20 MG TABLET (UD) PO SCH (20:27)
[2023-12-02] MEDS: chlordiazePOXIDE HCL 25 MG CAPSULE PO SCH (05:41)
[2023-12-03] MEDS ORDERED: chlordiazePOXIDE HCL 10 MG CAPSULE PO PRN
[2023-12-03] MEDS: chlordiazePOXIDE HCL 10 MG CAPSULE PO SCH (05:20)
[2023-12-03] MEDS: IBUPROFEN 400 MG TABLET (FP) PO PRN (05:23)
[2023-12-03] MEDS: predniSONE 10 MG TABLET (UD) PO ONE (10:14)
[2023-12-04] MEDS: chlordiazePOXIDE HCL 10 MG CAPSULE PO SCH (05:19)
[2023-12-04] MEDS: predniSONE 20 MG TABLET (UD) PO ONE (09:12)
[2023-12-04 12:15] LABS: POTASSIUM 3.6 mmol/L (3.5-5.1)
[2023-12-04 12:27] LABS: CALCIUM 8.9 mg/dL (8.5-10.1)
[2023-12-04 12:28] LABS: BLOOD UREA NITROGEN 16.6 mg/dL (7-18)
[2023-12-04 12:31] LABS: CREATININE 0.9 mg/dL (0.55-1.3)
[2023-12-04 12:32] LABS: BILIRUBIN,TOTAL 0.2 mg/dL (0.2-1); TOT PROT 6.2 g/dl (6.4-8.2)
[2023-12-05] MEDS: chlordiazePOXIDE HCL 10 MG CAPSULE PO ONE (05:31)
[2023-12-05 06:14] VITALS: RESP 18
[2023-12-05] MEDS: predniSONE 10 MG TABLET (UD) PO ONE (09:28)
[2023-12-05 11:03] VITALS: BP 145/81; PULSE 83; TEMP 97.3
[2023-12-06] MEDS ORDERED: predniSONE 5 MG TABLET (UD) PO ONE (06:00)
== END 2023-12-05 09:40 | disposition other institution (70) | DRG 774 ==
LOC: YASAS 16:31 → Y6N 19:22
PROVIDERS: ADMIT Allergy & Immunology; ATTEND Surgery
PROC: HZ2ZZZZ Detoxification Services for Substance Abuse Treatment (ICD-10-PCS; principal; 2023-11-29)
DX: F10.230 Alcohol dependence with withdrawal, uncomplicated (principal); F14.20 Cocaine dependence, uncomplicated; F12.20 Cannabis dependence, uncomplicated; F17.210 Nicotine dependence, cigarettes, uncomplicated; F43.10 Post-traumatic stress disorder, unspecified; I10 Essential (primary) hypertension; R74.01 Elevation of levels of liver transaminase levels; Z86.11 Personal history of tuberculosis; Z87.09 Personal history of other diseases of the respiratory system; S09.90XA Unspecified injury of head, initial encounter; W22.01XA Walked into wall, initial encounter; Y93.89 Activity, other specified; Y92.230 Patient room in hospital as the place of occurrence of the external cause
CPT/HCPCS: 36415; 71045-TC-FY; 80053; 80164; 85027; 86780

== ENCOUNTER 2023-12-07 13:41 | Inpatient (IN) | payer OTHER ==
[2023-12-07 14:26] VITALS: BMI 27.2
[2023-12-07] MEDS ORDERED: MAGNESIUM HYDROX 2400MG/30ML ORAL SUSPENSION 30 ML CUP PO PRN (15:45)
[2023-12-07] MEDS ORDERED: guaiFENesin 600 MG TABLET.ER (FP) PO PRN (15:45)
[2023-12-07] MEDS ORDERED: NICOTINE POLACRILEX 2 MG LOZENGE BC PRN (15:45)
[2023-12-07] MEDS ORDERED: ACETAMINOPHEN 325 MG TABLET (FP) PO PRN (15:45)
[2023-12-07] MEDS ORDERED: MAG HYDROX/AL HYDROX/SIMETH 30 ML UNIT-DOSE CUP PO PRN (15:45)
[2023-12-07] MEDS ORDERED: POLYETHYLENE GLYCOL (HEALTHYLAX) 3350 17 GM PACKET PO PRN (15:45)
[2023-12-07] MEDS ORDERED: NICOTINE POLACRILEX 2 MG GUM BUC PRN (15:45)
[2023-12-07] MEDS ORDERED: IBUPROFEN 400 MG TABLET (FP) PO PRN (15:45)
[2023-12-07] MEDS ORDERED: BENZOCAINE/MENTHOL (CHLORASEPTIC ) LOZENGE MM PRN (15:45)
[2023-12-07] MEDS ORDERED: BENZONATATE 200 MG CAPSULE PO PRN (15:45)
[2023-12-07] MEDS ORDERED: DOCUSATE SODIUM 100 MG CAPSULE (FP) PO PRN (15:45)
[2023-12-07] MEDS ORDERED: LOPERAMIDE HCL 2 MG CAPSULE PO PRN (15:45)
[2023-12-07] MEDS: MELATONIN 5 MG TABLETS PO SCH (21:07)
[2023-12-07] MEDS: THIAMINE 100 MG TABLET PO SCH (21:07)
[2023-12-07] MEDS ORDERED: ALBUTEROL SO4 HFA INHALER IH PRN (21:47)
[2023-12-07] MEDS: DIVALPROEX SODIUM 500 MG TABLET E.C. PO SCH (22:59)
[2023-12-07] MEDS: GABAPENTIN 400 MG CAPSULE PO SCH (22:59)
[2023-12-07] MEDS: levETIRAcetam 500 MG TABLET (FP) PO SCH (22:59)
[2023-12-07] MEDS: QUEtiapine FUMARATE 100 MG TABLET (FP) PO SCH (22:59)
[2023-12-07] MEDS: ATORVASTATIN CA 40 MG TABLET (FP) PO SCH (22:59)
[2023-12-08] MEDS: QUEtiapine FUMARATE 25 MG TABLET PO SCH (06:56)
[2023-12-08] MEDS: ASPIRIN 81 MG CHEWABLE TABLETS PO SCH (10:03)
[2023-12-08] MEDS: PRENATAL VITAMINS W/ FOLIC ACID TABLET (FP) PO SCH (10:05)
[2023-12-08] MEDS: amLODIPine BESYLATE 10 MG TABLET (FP) PO SCH (10:05)
[2023-12-08] MEDS: SERTRALINE HCL 50 MG TABLET (FP) PO SCH (10:05)
[2023-12-08] MEDS: TRIAMTERENE AND HCTZ - 37.5 MG/25 MG CAPSULE PO SCH (10:34)
[2023-12-09] MEDS ORDERED: TUBERCULIN PPD 5 TU/0.1ML VIAL ID ONE (15:53)
[2023-12-10] MEDS: QUEtiapine FUMARATE 25 MG TABLET PO SCH (09:46)
[2023-12-10] MEDS: METHOCARBAMOL 500 MG TABLET PO PRN (21:07)
[2023-12-12] MEDS: QUEtiapine FUMARATE 200 MG TABLET PO SCH (21:04)
[2023-12-13] MEDS: P-EPHED 60MG/TRIPROLIDI 2.5MG TABLET PO PRN (09:19)
[2023-12-13] MEDS ORDERED: guaiFENesin 600 MG TABLET.ER (FP) PO PRN (09:29)
[2023-12-13] MEDS ORDERED: BISMUTH SUBSALICYLATE 524 MG/30 ML PO PRN (09:29)
[2023-12-13] MEDS ORDERED: BENZONATATE 200 MG CAPSULE PO PRN (09:29)
[2023-12-17] MEDS: ATORVASTATIN CA 40 MG TABLET (FP) PO SCH (10:46)
[2023-12-17] MEDS: AMMONIUM LACTATE 12% LOTION 225 GM BOTTLE TP PRN (14:48)
[2023-12-17] MEDS: IBUPROFEN 600 MG TABLET (FP) PO PRN (19:24)
[2023-12-23] MEDS ORDERED: INSULIN (NOVOLOG) ASPART 100 UNITS/ML 10ML VIAL ONE (21:43)
[2023-12-23] MEDS ORDERED: INSULIN (LEVEMIR) 100 UNITS/ML UNITS SQ ONE (21:43)
[2023-12-27] MEDS: traZODone HCL 50 MG TABLET (FP) PO SCH (21:24)
[2024-01-04 07:00] VITALS: BP 116/82; PULSE 82; RESP 18; TEMP 98.3
== END 2024-01-04 09:15 | disposition home or self-care (01) | DRG 772 ==
LOC: YASAS 13:41 → Y3E 16:58
PROVIDERS: ADMIT Allergy & Immunology; ATTEND Psychiatry & Neurology Pain Medicine
PROC: HZ42ZZZ Group Counseling for Substance Abuse Treatment, Cognitive-Behavioral (ICD-10-PCS; principal; 2023-12-07)
DX: F10.20 Alcohol dependence, uncomplicated (principal); F14.20 Cocaine dependence, uncomplicated; F12.20 Cannabis dependence, uncomplicated; F17.210 Nicotine dependence, cigarettes, uncomplicated; F32.9 Major depressive disorder, single episode, unspecified; F43.10 Post-traumatic stress disorder, unspecified; G40.909 Epilepsy, unspecified, not intractable, without status epilepticus; G47.00 Insomnia, unspecified; I10 Essential (primary) hypertension; J06.9 Acute upper respiratory infection, unspecified; L85.3 Xerosis cutis; Z87.09 Personal history of other diseases of the respiratory system
CPT/HCPCS: 0241U-QW; 80305; 80307

== ENCOUNTER 2024-01-05 21:30 | Emergency (ER) | payer OTHER ==
[2024-01-05 21:45] VITALS: RESP 20; BMI 30.8
[2024-01-05] MEDS: ACETAMINOPHEN 1000 MG/100 ML BAG IVPB ONE (22:18)
[2024-01-05] MEDS: SODIUM CHLORIDE 0.9% 500 ML INFUS.BAG IV ONE (22:18)
[2024-01-05] MEDS: ONDANSETRON 4 MG/2 ML VIAL IVPUSH ONE (22:19)
[2024-01-05] MEDS: FAMOTIDINE 20 MG/50 ML IVPB 20 MG/50 ML MG IVPB ONE (22:19)
[2024-01-05] MEDS ORDERED: ACETAMINOPHEN INJECTION 100 ML IVPB ONE (22:21)
[2024-01-05] MEDS ORDERED: FAMOTIDINE 20 MG/50 ML IVPB 20 MG/50 ML MG IVPB ONE (22:22)
[2024-01-05] MEDS ORDERED: ONDANSETRON 4 MG/2 ML VIAL ONE (22:22)
[2024-01-05 22:51] LABS: BASO % 0.6 % (0-2.0); EOS % 2.5 % (0-4.5); HEMATOCRIT 35.8 % (35.4-49); HEMOGLOBIN 12.1 GM/dL (11.7-16.9); LYMPH % 25.5 % (8-40); MCH 29.1 pg (25.7-33.7); MCHC 33.8 g/dl (32.0-35.9); MEAN PLT VOLUME 7.7 fl (7.5-11.1); MONO % 16.4 % (3.8-10.2); PLATELET COUNT 160 10^3/uL (134-434); RBC 4.16 M/mm3 (4.00-5.60); RDW 15.9 % (11.9-15.9); WHITE BLOOD COUNT 7.5 K/mm3 (4.0-10.0)
[2024-01-05 22:54] LABS: INR 1.16 (0.83-1.09); PROTHROMBIN TIME (PATIENT) 13.1 SEC (9.7-13.0)
[2024-01-05 22:57] LABS: ACTIVATED PTT 28.4 SECONDS (25.2-36.5)
[2024-01-05 23:11] LABS: POTASSIUM 3.4 mmol/L (3.5-5.1)
[2024-01-05 23:13] LABS: ALBUMIN 3.6 g/dl (3.4-5.0); CALCIUM 9.3 mg/dL (8.5-10.1); MAGNESIUM 2.8 mg/dL (1.8-2.4)
[2024-01-05 23:18] LABS: BILIRUBIN,TOTAL 0.9 mg/dL (0.2-1)
[2024-01-05 23:57] VITALS: BP 140/89; PULSE 64; TEMP 97.5
[2024-01-06] MEDS: diazePAM CARPU-JECT 10 MG/2 ML DISP.SYRIN IVPUSH ONE (01:12)
[2024-01-06] MEDS ORDERED: diazePAM CARPU-JECT 10 MG/2 ML DISP.SYRIN ONE (01:13)
[2024-01-06 01:53] LABS: PH,URINE 5.5 (5.0-8.0); URINE APPEARANCE CLEAR; URINE BILIRUBIN NEGATIVE (NEGATIVE); URINE COLOR YELLOW; URINE GLUCOSE (UA) NEGATIVE (NEGATIVE); URINE KETONE 1+ (NEGATIVE); URINE LEUK ESTERASE NEGATIVE (NEGATIVE); URINE NITRITE NEGATIVE (NEGATIVE); URINE PROTEIN NEGATIVE (NEGATIVE); URINE UROBILINOGEN 0.2 mg/dL (0.2-1.0)
== END 2024-01-06 05:42 | disposition home or self-care (01) ==
LOC: JER 21:30
PROC: 3E033GC Introduction of Other Therapeutic Substance into Peripheral Vein, Percutaneous Approach (ICD-10-PCS; principal; 2024-01-05)
PROC: 3E033GC Introduction of Other Therapeutic Substance into Peripheral Vein, Percutaneous Approach (ICD-10-PCS; 2024-01-05)
PROC: 3E033GC Introduction of Other Therapeutic Substance into Peripheral Vein, Percutaneous Approach (ICD-10-PCS; 2024-01-05)
PROC: 3E033GC Introduction of Other Therapeutic Substance into Peripheral Vein, Percutaneous Approach (ICD-10-PCS; 2024-01-05)
DX: K29.20 Alcoholic gastritis without bleeding (principal); F10.230 Alcohol dependence with withdrawal, uncomplicated; Y90.9 Presence of alcohol in blood, level not specified
CPT/HCPCS: 36415; 71045-TC-FY; 74177-TC; 80053; 80307; 81003; 83605; 83690; 83735; 85025; 85610; 85730; 86850; 86900; 86901; 87086; 93005; 93010; 99285-25; J0131; Q9967

== ENCOUNTER 2024-03-26 12:16 | Inpatient (IN) | payer OTHER ==
[2024-03-26 13:00] VITALS: BMI 26.9
[2024-03-26] MEDS ORDERED: chlordiazePOXIDE HCL 25 MG CAPSULE PO PRN (14:16)
[2024-03-26] MEDS ORDERED: ONDANSETRON *ODT* 4 MG TABLET SL PRN (14:16)
[2024-03-26] MEDS ORDERED: BENZOCAINE/MENTHOL (CHLORASEPTIC ) LOZENGE MM PRN (14:16)
[2024-03-26] MEDS ORDERED: BISMUTH SUBSALICYLATE 262 MG/15 ML BTL PO PRN (14:16)
[2024-03-26] MEDS ORDERED: IBUPROFEN 600 MG TABLET (FP) PO PRN (14:16)
[2024-03-26] MEDS ORDERED: LOPERAMIDE HCL 2 MG CAPSULE PO PRN (14:16)
[2024-03-26] MEDS ORDERED: POLYETHYLENE GLYCOL (HEALTHYLAX) 3350 17 GM PACKET PO PRN (14:16)
[2024-03-26] MEDS ORDERED: DICYCLOMINE HCL 10 MG CAPSULE PO PRN (14:16)
[2024-03-26] MEDS ORDERED: NALOXONE (NARCAN) HCL 4 MG/0.1 ML SPRAY NS PRN (14:16)
[2024-03-26] MEDS ORDERED: NALOXONE HCL 0.4 MG/ML VIAL IM PRN (14:16)
[2024-03-26] MEDS ORDERED: MAG HYDROX/AL HYDROX/SIMETH 30 ML UNIT-DOSE CUP PO PRN (14:16)
[2024-03-26] MEDS ORDERED: MAGNESIUM HYDROX 2400MG/30ML ORAL SUSPENSION 30 ML CUP PO PRN (14:16)
[2024-03-26] MEDS ORDERED: guaiFENesin 600 MG TABLET.ER (FP) PO PRN (14:16)
[2024-03-26] MEDS ORDERED: BENZONATATE 200 MG CAPSULE PO PRN (14:16)
[2024-03-26] MEDS ORDERED: ALBUTEROL SO4 HFA INHALER IH PRN (14:18)
[2024-03-26] MEDS ORDERED: NICOTINE 7 MG/24 HOURS TOPICAL PATCH TD ONE (15:35)
[2024-03-26] MEDS ORDERED: PRENATAL VITAMINS W/ FOLIC ACID TABLET (FP) PO ONE (15:35)
[2024-03-26] MEDS: NICOTINE 7 MG/24 HOURS TOPICAL PATCH TD SCH (15:37)
[2024-03-26] MEDS: PRENATAL VITAMINS W/ FOLIC ACID TABLET (FP) PO SCH (15:37)
[2024-03-26] MEDS: hydrOXYzine PAMOATE 25 MG CAPSULE (FP) PO PRN (17:22)
[2024-03-26] MEDS: chlordiazePOXIDE HCL 25 MG CAPSULE PO SCH (17:23)
[2024-03-26] MEDS: THIAMINE 100 MG TABLET PO SCH (22:18)
[2024-03-26] MEDS: MELATONIN 5 MG TABLETS PO SCH (22:18)
[2024-03-26] MEDS: levETIRAcetam 500 MG TABLET (FP) PO SCH (22:19)
[2024-03-27] MEDS: ASPIRIN 81 MG CHEWABLE TABLETS PO SCH (09:51)
[2024-03-27] MEDS: amLODIPine BESYLATE 10 MG TABLET (FP) PO SCH (09:51)
[2024-03-27 11:37] LABS: HEMATOCRIT 41.9 % (35.4-49); MCH 28.8 pg (25.7-33.7); MCHC 33.4 g/dl (32.0-35.9); MEAN CELL VOLUME 86.4 fl (80-96); MEAN PLT VOLUME 10.7 fl (7.5-11.1); PLATELET COUNT 177 10^3/uL (134-434); RBC 4.85 M/mm3 (4.00-5.60); RDW 14.7 % (11.9-15.9); WHITE BLOOD COUNT 5.9 K/mm3 (4.0-10.0)
[2024-03-27 11:55] LABS: POTASSIUM 3.5 mmol/L (3.5-5.1)
[2024-03-27 12:26] LABS: ALBUMIN 4.1 g/dl (3.4-5.0); BLOOD UREA NITROGEN 36.4 mg/dL (7-18); CALCIUM 9.2 mg/dL (8.5-10.1)
[2024-03-27 12:29] LABS: CREATININE 2.2 mg/dL (0.55-1.3)
[2024-03-27 12:32] LABS: BILIRUBIN,TOTAL 0.4 mg/dL (0.2-1); TOT PROT 7.7 g/dl (6.4-8.2)
[2024-03-27] MEDS: QUEtiapine FUMARATE 50 MG TABLET PO SCH (22:32)
[2024-03-27] MEDS: METHOCARBAMOL 500 MG TABLET PO PRN (22:32)
[2024-03-28] MEDS: chlordiazePOXIDE HCL 25 MG CAPSULE PO SCH (05:55)
[2024-03-28] MEDS: IBUPROFEN 400 MG TABLET (FP) PO PRN (22:12)
[2024-03-29] MEDS ORDERED: chlordiazePOXIDE HCL 10 MG CAPSULE PO PRN
[2024-03-29] MEDS: chlordiazePOXIDE HCL 10 MG CAPSULE PO SCH (06:23)
[2024-03-29] MEDS: cloNIDine HCL 0.1 MG TABLET PO ONE (11:57)
[2024-03-30] MEDS: chlordiazePOXIDE HCL 10 MG CAPSULE PO SCH (05:15)
[2024-03-30] MEDS: ACETAMINOPHEN 325 MG TABLET (FP) PO PRN (17:33)
[2024-03-31] MEDS: chlordiazePOXIDE HCL 10 MG CAPSULE PO ONE (05:55)
[2024-03-31] MEDS: LOSARTAN POTASSIUM 50 MG TABLET PO SCH (15:29)
[2024-04-01 09:22] VITALS: BP 156/94; PULSE 72; RESP 18; TEMP 97.7
== END 2024-04-01 11:47 | disposition other institution (70) | DRG 774 ==
LOC: YASAS 12:16 → Y3N 15:08
PROVIDERS: ADMIT Allergy & Immunology; ATTEND Surgery
PROC: HZ2ZZZZ Detoxification Services for Substance Abuse Treatment (ICD-10-PCS; principal; 2024-03-26)
DX: F10.230 Alcohol dependence with withdrawal, uncomplicated (principal); F14.20 Cocaine dependence, uncomplicated; F12.20 Cannabis dependence, uncomplicated; F17.210 Nicotine dependence, cigarettes, uncomplicated; F43.10 Post-traumatic stress disorder, unspecified; I10 Essential (primary) hypertension; R26.89 Other abnormalities of gait and mobility; Z99.89 Dependence on other enabling machines and devices; Z86.19 Personal history of other infectious and parasitic diseases; Z56.0 Unemployment, unspecified; Z59.00 Homelessness unspecified
CPT/HCPCS: 36415; 80053; 80305; 80307; 85027; 86780; 87811

== ENCOUNTER 2024-04-01 11:39 | Inpatient (IN) | payer OTHER ==
[2024-04-01] MEDS ORDERED: LOPERAMIDE HCL 2 MG CAPSULE PO PRN (14:36)
[2024-04-01] MEDS ORDERED: IBUPROFEN 600 MG TABLET (FP) PO PRN (14:36)
[2024-04-01] MEDS ORDERED: NALOXONE HCL 0.4 MG/ML VIAL IVPUSH PRN (14:36)
[2024-04-01] MEDS ORDERED: NALOXONE (NARCAN) HCL 4 MG/0.1 ML SPRAY NS PRN (14:36)
[2024-04-01] MEDS ORDERED: MAG HYDROX/AL HYDROX/SIMETH 30 ML UNIT-DOSE CUP PO PRN (14:36)
[2024-04-01] MEDS ORDERED: ACETAMINOPHEN 325 MG TABLET (FP) PO PRN (14:36)
[2024-04-01] MEDS ORDERED: MAGNESIUM HYDROX 2400MG/30ML ORAL SUSPENSION 30 ML CUP PO PRN (14:36)
[2024-04-01] MEDS ORDERED: IBUPROFEN 400 MG TABLET (FP) PO PRN (14:36)
[2024-04-01] MEDS ORDERED: BENZONATATE 200 MG CAPSULE PO PRN (14:36)
[2024-04-01] MEDS ORDERED: guaiFENesin 600 MG TABLET.ER (FP) PO PRN (14:36)
[2024-04-01] MEDS: QUEtiapine FUMARATE 50 MG TABLET PO SCH (21:19)
[2024-04-01] MEDS: MELATONIN 5 MG TABLETS PO SCH (21:19)
[2024-04-01] MEDS: levETIRAcetam 500 MG TABLET (FP) PO SCH (21:19)
[2024-04-01] MEDS: THIAMINE 100 MG TABLET PO SCH (21:19)
[2024-04-01] MEDS: hydrOXYzine PAMOATE 25 MG CAPSULE (FP) PO PRN (21:20)
[2024-04-02] MEDS: ASPIRIN 81 MG CHEWABLE TABLETS PO SCH (10:18)
[2024-04-02] MEDS: amLODIPine BESYLATE 10 MG TABLET (FP) PO SCH (10:18)
[2024-04-02] MEDS: PRENATAL VITAMINS W/ FOLIC ACID TABLET (FP) PO SCH (10:18)
[2024-04-02] MEDS: NICOTINE 7 MG/24 HOURS TOPICAL PATCH TD SCH (10:19)
[2024-04-02 10:29] LABS: INR 0.98 (0.83-1.09); PROTHROMBIN TIME (PATIENT) 11.3 SEC (9.7-13.0)
[2024-04-02 11:40] LABS: POTASSIUM 3.9 mmol/L (3.5-5.1)
[2024-04-02 12:00] LABS: ALBUMIN 3.4 g/dl (3.4-5.0); CALCIUM 9.1 mg/dL (8.5-10.1); MAGNESIUM 2.1 mg/dL (1.8-2.4)
[2024-04-02 12:01] LABS: BLOOD UREA NITROGEN 17.3 mg/dL (7-18)
[2024-04-02 12:03] LABS: PHOSPHOROUS 3.5 mg/dL (2.5-4.9)
[2024-04-02 12:04] LABS: CREATININE 0.9 mg/dL (0.55-1.3)
[2024-04-02 12:05] LABS: BILIRUBIN,TOTAL 0.2 mg/dL (0.2-1); TOT PROT 6.9 g/dl (6.4-8.2)
[2024-04-02] MEDS: QUEtiapine FUMARATE 100 MG TABLET (FP) PO SCH (21:30)
[2024-04-03] MEDS: POLYETHYLENE GLYCOL (HEALTHYLAX) 3350 17 GM PACKET PO PRN (08:36)
[2024-04-03] MEDS ORDERED: BISACODYL 5 MG TABLET.DR (FP) PO PRN (16:23)
[2024-04-03] MEDS: CHOLECALCIFEROL (VIT D3) 400 UNIT (10 MCG) TABLET PO SCH (17:47)
[2024-04-03] MEDS: BACLOFEN 10 MG TABLET (FP) PO SCH (21:20)
[2024-04-03] MEDS: DOCUSATE SODIUM 100 MG CAPSULE (FP) PO SCH (21:20)
[2024-04-04] MEDS: METHOCARBAMOL 500 MG TABLET PO PRN (21:21)
[2024-04-05] MEDS: BENZOCAINE 20 % GEL TUBE MM PRN (15:39)
[2024-04-05] MEDS: MELATONIN 5 MG TABLETS PO SCH (21:50)
[2024-04-05] MEDS: QUEtiapine FUMARATE 100 MG TABLET (FP) PO SCH (21:52)
[2024-04-06] MEDS: IBUPROFEN 400 MG TABLET (FP) PO PRN (10:16)
[2024-04-06] MEDS: QUEtiapine FUMARATE 50 MG TABLET PO SCH (21:33)
[2024-04-07] MEDS: BENZOCAINE/MENTHOL (CHLORASEPTIC ) LOZENGE MM PRN (16:52)
[2024-04-09] MEDS: NICOTINE POLACRILEX 4 MG GUM BUC PRN (10:14)
[2024-04-09] MEDS: QUEtiapine FUMARATE 25 MG TABLET PO ONE (15:57)
[2024-04-10] MEDS: ALBUTEROL SO4 HFA INHALER IH PRN (04:32)
[2024-04-10] MEDS: QUEtiapine FUMARATE 50 MG TABLET PO SCH (09:33)
[2024-04-10] MEDS: GABAPENTIN 400 MG CAPSULE PO SCH ×2 (12:49→21:49)
[2024-04-11] MEDS: NICOTINE POLACRILEX 4 MG LOZENGE BC PRN (10:35)
[2024-04-14 09:14] VITALS: BP 156/99; PULSE 81; RESP 18; TEMP 97.7
[2024-04-14] MEDS ORDERED: QUEtiapine FUMARATE 25 MG TABLET ONE (10:34)
== END 2024-04-14 11:25 | disposition home or self-care (01) | DRG 772 ==
LOC: YASAS 11:39 → Y3E 11:40
PROVIDERS: ADMIT Allergy & Immunology; ATTEND Psychiatry & Neurology Pain Medicine
PROC: HZ42ZZZ Group Counseling for Substance Abuse Treatment, Cognitive-Behavioral (ICD-10-PCS; principal; 2024-04-01)
DX: F10.20 Alcohol dependence, uncomplicated (principal); F14.20 Cocaine dependence, uncomplicated; F12.20 Cannabis dependence, uncomplicated; F17.210 Nicotine dependence, cigarettes, uncomplicated; F19.982 Other psychoactive substance use, unspecified with psychoactive substance-induced sleep disorder; F19.980 Other psychoactive substance use, unspecified with psychoactive substance-induced anxiety disorder; F91.8 Other conduct disorders; I10 Essential (primary) hypertension; E78.5 Hyperlipidemia, unspecified; G40.909 Epilepsy, unspecified, not intractable, without status epilepticus; K08.89 Other specified disorders of teeth and supporting structures; K02.9 Dental caries, unspecified; J02.9 Acute pharyngitis, unspecified; Z59.00 Homelessness unspecified
CPT/HCPCS: 36415; 80053; 82140; 82652; 83735; 84100; 85610; 86803; 87522; J0475